=== PATIENT | male | born 1975 | race African-American/Black ===

== ENCOUNTER 2021-01-15 03:23 | Emergency (ER) | payer SELFPAY ==
[~2021-01-15] VITALS: Ht 182.9 cm; Wt 82.0 kg
[2021-01-15 03:50] VITALS: BP 119/90
== END 2021-01-15 06:29 | disposition left against medical advice (07) ==
LOC: ER 03:23
DX: Z53.21 Procedure and treatment not carried out due to patient leaving prior to being seen by health care provider (principal)